=== PATIENT | male | born 1960 | race African-American/Black ===

== ENCOUNTER 2017-01-24 00:11 | Emergency (ER) | payer OTHER ==
[~2017-01-24] VITALS: Ht 167.6 cm; Wt 78.8 kg
[2017-01-24 00:21] VITALS: BP 146/83
[2017-01-24] MEDS ORDERED: SKELAXIN800 MG PO (01:16)
[2017-01-24] MEDS ORDERED: NAPROSYN500 MG PO (01:16)
== END 2017-01-24 01:40 | disposition home or self-care (01) ==
LOC: EME 00:11
DX: S16.1XXA Strain of muscle, fascia and tendon at neck level, initial encounter (principal); V49.40XA Driver injured in collision with unspecified motor vehicles in traffic accident, initial encounter; Y92.410 Unspecified street and highway as the place of occurrence of the external cause; M54.5 Low back pain
CPT/HCPCS: 99281; 99284

== ENCOUNTER 2017-02-13 20:01 | Emergency (ER) | payer OTHER ==
[~2017-02-13] VITALS: Ht 154.9 cm; Wt 76.0 kg
[~2017-02-13 20:01] MED LIST: NAPROSYN500 MG PO; SKELAXIN800 MG PO
[2017-02-13] MEDS ORDERED: MOBIC15 MG PO (21:27)
[2017-02-13 21:30] VITALS: BP 164/87
== END 2017-02-13 21:48 | disposition home or self-care (01) ==
LOC: EME 20:01
DX: M25.561 Pain in right knee (principal)
CPT/HCPCS: 73564; 99281; 99284